=== PATIENT | female | born 1995 | race Two or more races ===

== ENCOUNTER 2021-01-28 09:20 | Day surgery (SDC) | payer OTHER ==
[~2021-01-28 09:20] MED LIST: PEPCID PO
[2021-01-28] MEDS ORDERED: PERCOCET 5-3251 EACH PO (14:24)
== END 2021-01-28 17:10 | disposition home or self-care (01) ==
LOC: CIR.AMB 09:20
PROVIDERS: ATTEND Surgery
DX: C73 Malignant neoplasm of thyroid gland (principal); Z20.822 Contact with and (suspected) exposure to COVID-19

== ENCOUNTER 2024-12-02 18:35 | Emergency (ER) | payer OTHER ==
[~2024-12-02] VITALS: Ht 147.3 cm; Wt 69.9 kg
[~2024-12-02 18:35] MED LIST changes: +PERCOCET 5-3251 EACH PO
[2024-12-02] MEDS ORDERED: SYNTHROID150 MCG PO (19:13)
[2024-12-02] MEDS ORDERED: DICY20TA PO (19:14)
[2024-12-02] MEDS ORDERED: PEPCID AC20 MG (19:14)
[2024-12-02] MEDS ORDERED: ONDANSETRON HCL 2 MG/ML VIAL IV ONE (19:45)
[2024-12-02] MEDS ORDERED: KETOROLAC TROMETHAMINE 30 MG VIAL IV ONE (19:45)
[2024-12-02] MEDS ORDERED: 0.9 % SODIUM CHLORIDE 1,000 ML IV ONE (19:45)
[2024-12-02] MEDS ORDERED: FAMOtidine 10 MG/ML (4ML VIAL) IV PUSH ONE (19:45)
[2024-12-02] MEDS ORDERED: KETOROLAC TROMETHAMINE 30 MG VIAL ONE (20:30)
[2024-12-02] MEDS ORDERED: ONDANSETRON HCL 2 MG/ML VIAL ONE (20:30)
[2024-12-02] MEDS ORDERED: FAMOTIDINE/PF 20 MG/2 ML VIAL ONE (20:31)
[2024-12-02 21:25] LABS: HEMATOCRIT 35.7 % (36.0-45.00); HEMOGLOBIN 12.1 g/dL (12.0-15.00); MEAN CELL VOLUME 88.5 fL (80.00-100.00); MEAN CORPUSCULAR HGB CONC 33.8 g/dl (32.0-36.0); PLATELET COUNT 225 K/uL (150-450); RED BLOOD COUNT 4.04 M/uL (4.00-6.00); RED CELL DISTRIBUTION WIDTH 13.4 % (11.5-14.5)
[2024-12-02 21:45] LABS: PARTIAL THROMBOPLASTIN TIME 28.4 SECONDS (22.0-34.0); PROTHROMBIN TIME 10.9 SECONDS (9.0-11.5)
[2024-12-02 21:55] LABS: ALBUMIN 4.2 gm/dL (3.4-5.0); ALKALINE PHOSPHATASE 67 U/L (50-136); ALT/SGPT 15 U/L (12-78); AMYLASE 58 U/L (25-115); ANION GAP 10 (10.0-20.0); AST/SGOT 15 U/L (15-37); BILIRUBIN TOTAL 0.37 mg/dL (0.3-1.2); BILIRUBIN,CONJUGATED < 0.10 mg/dL (0.0-0.2); BILIRUBIN,UNCONJUGATED 0.27 mg/dL (0.0-0.6); BLOOD UREA NITROGEN 8 mg/dL (7-18); BUN CREA RATIO 13 (7.0-25.0); CALCIUM 8.5 mg/dL (8.5-10.1); CARBON DIOXIDE 25 mEq/L (21-32); CHLORIDE 110 mmol/L (98-107); GFR 117.38; GLOBULINA 3.5 G/DL (2.4-3.5); GLUCOSE FASTING 91 mg/dL (65-100); LIPASE 35 U/L (13-75); OSMOLALITY SERUM 279 MOSM/KG (275-295); POTASSIUM 3.73 mEq/L (3.5-5.1); SODIUM 141 mmol/L (136-145); TOTAL PROTEIN 7.7 gm/dL (6.4-8.2)
[2024-12-02 21:56] LABS: HCG QUANTITATIVE < 1 mUI/mL (1-3)
[2024-12-03 00:36] LABS: PH,URINE 6.5 (5.0-8.0); URINE APPEARANCE Clear; URINE BILIRRUBIN Negative (NEGATIVE); URINE BLOOD Negative; URINE COLOR Yellow; URINE GLUCOSE Negative (NEGATIVE); URINE KETONE Trace (NEGATIVE); URINE LEUKOCYTE Negative; URINE NITRATE Negative; URINE PROTEIN Negative (NEGATIVE); URINE UROBILINOGEN 0.2 E.U./dl
[2024-12-03 00:40] LABS: URINE BACTERIA 162.7 uL (0.0-1933); URINE EPITHELIAL CELLS 3.1 uL (0.0-38.8); URINE RBC 7.9 uL (0.0-20.8)
[2024-12-03 00:41] LABS: URINE WBC 0.9 uL (0.0-23.2)
[2024-12-03] MEDS ORDERED: KETO10TA2 PO (02:21)
== END 2024-12-03 02:45 ==
LOC: ER 18:35
PROVIDERS: General Practice
DX: N83.201 Unspecified ovarian cyst, right side (principal); Z85.850 Personal history of malignant neoplasm of thyroid